=== PATIENT | female | born 1975 | race Two or more races ===

== ENCOUNTER 2023-06-08 06:05 | Emergency (ER) | payer OTHER, MEDICAID ==
[~2023-06-08] VITALS: Ht 152.4 cm; Wt 77.3 kg
[2023-06-08 06:10] VITALS: TEMP 98.7
[2023-06-08 06:18] VITALS: BP 125/42; PULSE 77; RESP 15
== END 2023-06-08 06:44 | disposition home or self-care (01) ==
LOC: EMS 06:07
DX: S60 Superficial injury of wrist, hand and fingers (principal); X58.XXXA Exposure to other specified factors, initial encounter; Y93.89 Activity, other specified; Y92.89 Other specified places as the place of occurrence of the external cause; Y99.8 Other external cause status
CPT/HCPCS: 99282; Z7502